=== PATIENT | male | born 1990 | race Two or more races ===

== ENCOUNTER 2025-10-04 06:36 | Emergency (ER) | payer OTHER ==
[~2025-10-04] VITALS: Ht 177.8 cm; Wt 79.4 kg
[2025-10-04 06:53] VITALS: BP 119/72; TEMP 98.6; O2SAT 96
[2025-10-04] MEDS ORDERED: FAMOTIDINE (20 MG) 20 MG TABLET ONE (06:55)
[2025-10-04] MEDS ORDERED: LIDOCAINE VISCOUS 2% UD 15 ML UDC ONE (06:55)
[2025-10-04] MEDS ORDERED: MAG HYDROX/AL HYDROX/SIMETH 30 ML UDC ONE (06:55)
[2025-10-04] MEDS: FAMOTIDINE (20 MG) 20 MG TABLET PO ONE (06:59)
[2025-10-04] MEDS: LIDOCAINE VISCOUS 2% UD 15 ML UDC MM ONE (06:59)
[2025-10-04] MEDS: MAG HYDROX/AL HYDROX/SIMETH 30 ML UDC PO ONE (06:59)
[2025-10-04] MEDS ORDERED: IV NS 0.9% 1,000 ML BAG IV ONE (07:00)
[2025-10-04] MEDS: ONDANSETRON 4 MG TAB.RAPDIS SL ONE (07:01)
[2025-10-04] MEDS ORDERED: ONDA4TAB5 PO (07:07)
[2025-10-04] MEDS ORDERED: FAMO-131 PO (07:07)
== END 2025-10-04 07:15 | disposition home or self-care (01) ==
LOC: ER 06:42
DX: R10.10 Upper abdominal pain, unspecified (principal); R11.0 Nausea; Z91.048 Other nonmedicinal substance allergy status; Z60.2 Problems related to living alone